=== PATIENT | female | born 1975 | race Caucasian/White ===

== ENCOUNTER → 2017-08-15 | Outpatient (CLI) | payer BC ==
[2017-08-15 18:21] LABS: BUN 13 mg/dL (7-18)
[2017-08-15 19:11] LABS: GFR (ESTIMATED) 110 ML/MIN (59-)
== END ==
LOC: LAB 17:16
PROVIDERS: Family Medicine
DX: E78.5 Hyperlipidemia, unspecified (principal); E03.9 Hypothyroidism, unspecified; I10 Essential (primary) hypertension; R73.01 Impaired fasting glucose

== ENCOUNTER → 2017-10-24 | Outpatient (CLI) | payer BC | LOC: LAB 12:29 | DX: E03.9 Hypothyroidism, unspecified (principal) ==